=== PATIENT | female | born 1965 | race Hispanic/Latino ===

== ENCOUNTER 2017-06-22 12:18 | Emergency (ER) | payer MEDICARE ==
[2017-06-22 12:29] VITALS: BP 143/83; PULSE 89; RESP 16; TEMP 98.3; O2SAT 98
--- NOTE | 2017-06-22 12:43 | C.PDOC ---
History Of Present Illness 52 y/o female with Hx of chronic sinusitis presents to ED with persistent sinus pain for 7days. Patient states she takes Bactrim for 7 days every month. Patient has no previous ER visit for ENT evaluation. Patient also reports new onset sinus pressure and green drainage with associated subjective fever. Patient also complaints of possible recurrent abscess to Left axilla for 7 days with no drainage. Patient states she has multiple prior axilla abscesses with prior I&D by PMD. No other complaints at this time. PERSIST SINUS PAIN X 7 DAYS. PS HAS CHRONIC SINUSITIS, TAKES BACTRIM X 7 DAYS EVERY MONTH. NO PRIOR ENT EVAL FOR SAME. NEW ONSET SINUS PRESSURE. +GREEN DRAINAGE. SUBJ FEVER. ALSO POSSIBLE RECUR ABSCESS L AXILLA X 7 DAYS. PS MULT PRIOR AXILLA ABSCESSES W PRIOR I&D BY PMD. NO DRAINAGE EXAM NAD HEENT NO NASAL DC +SINUS TEND SKIN B/L AXILLA CHRONIC SCARRING, SUBCUT NODULES. NO FOCAL FLUCTUANCE. NO REDNESS MDM ADVISED RISKS OF BACTERIAL RESISTANCE, NEED FOR ENT AND SURGERY FU. Chief Complaint (Nursing): Abnormal Skin Integrity History Per: Patient History/Exam Limitations: no limitations Onset/Duration Of Symptoms: Days Current Symptoms Are (Timing): Still Present Past Medical History Reviewed: Historical Data, Nursing Documentation, Vital Signs Vital Signs: Last Vital Signs Temp 98.3 F 06/22/17 12:26 Pulse 89 06/22/17 12:26 Resp 16 06/22/17 12:26 BP 143/83 06/22/17 12:26 Pulse Ox 98 06/22/17 13:25 Family History: States: No Known Family Hx - Social History Hx Alcohol Use: No Hx Substance Use: No - Immunization History Hx Tetanus Toxoid Vaccination: No Hx Influenza Vaccination: No Hx Pneumococcal Vaccination: No Review Of Systems Except As Marked, All Systems Reviewed And Found Negative. Constitutional: Positive for: Fever. Negative for: Chills Eyes: Negative for: Vision Change ENT: Positive for: Other (Sinus pain) Cardiovascular: Negative for: Chest Pain Respiratory: Negative for: Cough, Shortness of Breath Skin: Negative for: Rash Physical Exam - Physical Exam Appears: No Acute Distress Skin: Warm, Other (bilateral axilla chronic scarring, subcutaneous nodules, no focal fluctuance, no redness) Head: Tenderness (sinus) Eye(s): bilateral: Normal Inspection, PERRL, EOMI Nose: Normal Oral Mucosa: Moist Throat: Normal, No Erythema Neck: Normal ROM Chest: Symmetrical Neurological/Psych: Oriented x3, Normal Speech, Normal Cognition ED Course And Treatment O2 Sat by Pulse Oximetry: 98 (RA) Pulse Ox Interpretation: Normal Medical Decision Making Medical Decision Making: Patient advised risks of bacterial resistance, need for ENT and surgery follow up Disposition Counseled Patient/Family Regarding: Diagnosis, Need For Followup, Rx Given - Disposition Referrals: Larry Lima MD [Staff Provider] - John Schilling MD [Staff Provider] - Disposition: HOME/ ROUTINE Disposition Time: 12:57 Condition: GOOD Additional Instructions: TAKE PROBIOTICS FOR POSSIBLE ASSOCIATED ANTIBIOTIC DIARRHEA. MOTRIN/TYLENOL DIRECTED FOR PAIN. FOLLOW UP ENT Prescriptions: Amoxicillin/Clavulanate [Augmentin 875 MG-125 MG] 1 tab PO BID #84 tab Fluticasone Propionate [Flonase] 2 spr NS DAILY #1 bottle Oxymetazoline 0.05% [Afrin 0.05%] 2 spr NS BID #1 bottle Instructions: Sinusitis (ED) Forms: [employer] (Bel[place]ian) - Clinical Impression Clinical Impression: Chronic sinusitis, Axillary pain - PA / SUMAC TANNER / Resident Statement MD/DO has examined the patient and agrees with the treatment plan. - Scribe Statement The provider has reviewed the documentation as recorded by the Ktibrodrigo Byrne All medical record entries made by the Ktibrodrigo were at my direction and personally dictated by me. I have reviewed the chart and agree that the record accurately reflects my personal performance of the history, physical exam, medical decision making, and the department course for this patient. I have also personally directed, reviewed, and agree with the discharge instructions and disposition.
== END 2017-06-22 13:46 | disposition home or self-care (01) ==
LOC: C.ER 12:18
DX: J32.9 Chronic sinusitis, unspecified (principal)